=== PATIENT | female | born 1950 | race Caucasian/White ===

== ENCOUNTER 2016-07-12 15:52 | Outpatient (CLI) | payer OTHER | END 2016-07-12 15:53 | disposition home or self-care (01) | DX: R05 Cough (principal); R91.8 Other nonspecific abnormal finding of lung field ==

== ENCOUNTER 2021-10-02 08:04 | Outpatient (CLI) | payer MEDICARE, OTHER ==
--- NOTE | 2021-10-02 11:54 | Ultrasound Report ---
PROCEDURE: Head or Neck Soft Tissue INDICATIONS: THYROID NODULE TECHNIQUE: Real-time scanning was performed of the thyroid gland, with image documentation. COMPARISON: None FINDINGS: Right: Thyroid lobe measures 3.5 x 1.4 x 1.3 cm, and is homogeneous in echotexture. Left: Thyroid lobe measures 4.8 x 1.7 cm, and is homogenous in echotexture. Isthmus: 3 mm thick. Nodule number: One Location: Right inferior Size: 2.9 x 2.0 x 1.9 cm. Composition: Solid Echogenicity: Isoechoic Shape: wider than tall. Margins: Lobulated Echogenic foci: Macrocalcification Total points: 6 ACR TI-RADS category: Moderately suspicious IMPRESSION: 2.9 x 2.0 x 1.9 cm inferior right thyroid nodule. Recommend ultrasound-guided fine needl e aspiration based on imaging characteristics and criteria outlined below. ACR TI-RADS definitions and recommendations: TI-RADS 1 (benign): 0 points. FNA not needed. TI-RADS 2 (not suspicious): 2 points. FNA not needed. TI-RADS 3 (mildly suspicious): 3 points. "FNA if 2.5 cm or larger, follow up if 1.5 cm or larger (at 1, 3, and 5 years). TI-RADS 4 (moderately suspicious): 4-6 points. "FNA if 1.5 cm or larger, follow up if 1 cm or larger (at 1, 2, 3, and 5 years). TI-RADS 5 (highly suspicious): 7 points or more. "FNA if 1 cm or larger, follow up if 0.5 cm or larger (every year for 5 years). Reviewed by: Rosaura Carlos MD, PhD on 10/02/2021 11:53 AM PDT Approved by: Rosaura Carlos MD, PhD on 10/02/2021 11:53 AM PDT Station ID: [id number]
--- NOTE | 2021-10-02 17:23 | DEXA Report ---
PROCEDURE: Dexa Spine and/or Hip INDICATIONS: POSTMENOPAUSAL TECHNIQUE: Dual energy x-ray absorptiometry (DXA) was performed on a [employer] System. Regions measur ed are the AP Spine, femoral neck, and if needed forearm. COMPARISON: None. FINDINGS: Lumbar Spine: Bone Mineral Density 1.476 g/cm/cm,T score 2.5, normal bone density Left Hip: Bone Mineral Density 0.967 g/cm/cm,T score -0.3, normal bone mineral density Left Femoral Neck: Bone Mineral Density 0.870 g/cm/cm, T score -1.2, osteopenia (T score greater or equal to -1.0: NORMAL) (T score from -1.1 to -2.4: OSTEOPENIA) (T score less than or equal to -2.5 to: OSTEOPOROSIS) Impression: Mild osteopenia. Patient is at increased risk for fracture. Patients with diagnosis of osteoporosis or osteopenia should have regular bone mineral density assess ment. For those eligible for Medicare, routine testing is allowed once every 2 years. Testing frequ ency can be increased for patients who have rapidly progressing disease or for those who are receivin g medical therapy to restore bone mass. Reviewed by: Ángel Franco MD on 10/02/2021 5:21 PM PDT Approved by: Ángel Franco MD on 10/02/2021 5:21 PM PDT Station ID: [id number]
== END 2021-10-02 08:05 | disposition home or self-care (01) ==
LOC: DI 08:04
PROVIDERS: ATTEND Physician Assistant
DX: Z78.0 Asymptomatic menopausal state (principal); M85.88 Other specified disorders of bone density and structure, other site; E04.1 Nontoxic single thyroid nodule

== ENCOUNTER 2021-11-05 14:12 | Outpatient (CLI) | payer MEDICARE, OTHER ==
--- NOTE | 2021-11-07 13:13 | Mammography Report ---
BILATERAL DIGITAL SCREENING MAMMOGRAM 3D/2D WITH EXAGGERATED CC: 11/05/2021 CLINICAL: Routine screening. Comparison is made to exams dated: 04/18/2016 mammogram and 02/18/2008 mammogram - [facility]. The tissue of both breasts is predominantly fatty. There is a possible asymmetry in the left breast anterior depth central to the nipple seen on the med iolateral oblique view only. No other significant masses, calcifications, or other findings are seen in either breast. IMPRESSION: INCOMPLETE: NEEDS ADDITIONAL IMAGING EVALUATION The possible asymmetry in the left breast is indeterminate. Additional views with possible ultrasoun d are recommended. This exam was interpreted at Station ID: [id number]. NOTE: For mammograms, a report in lay terms will be sent to the patient. Approximately 15% of breast malignancies will not be visualized mammographically. In the management of a palpable breast mass, a negative mammogram must not discourage biopsy of a clinically suspicious lesion. Electronically Signed By: Francisco Arguelles M.D., jr/evy:11/07/2021 09:03:55 ACR BI-RADS Category 0: Incomplete 3340F PARENCHYMAL PATTERN: (F) - The breast(s) demonstrate(s) diffuse fatty replacement. BI-RADS CATEGORY: (0) - 0 Mammo and [place] [id number] Immediate follow-up LATERALITY: (B)
== END 2021-11-05 14:13 | disposition home or self-care (01) ==
LOC: DI.S 14:12
PROVIDERS: ATTEND Physician Assistant
DX: Z12.31 Encounter for screening mammogram for malignant neoplasm of breast (principal); R92.8 Other abnormal and inconclusive findings on diagnostic imaging of breast

== ENCOUNTER 2022-09-18 06:40 | Outpatient (CLI) | payer MEDICARE, OTHER ==
--- NOTE | 2022-09-18 08:17 | Ultrasound Report ---
PROCEDURE: Abdomen Complete INDICATIONS: ABD PAIN. Nausea, constipation. TECHNIQUE: Real-time scanning was performed of the abdominal and retroperitoneal organs, with image documentatio n. COMPARISON: None. FINDINGS: Liver: Increased liver echogenicity, commonly mild hepatic steatosis. Gallbladder: Unremarkable. Biliary ducts: Intrahepatic bile ducts are non-dilated. Extrahepatic bile duct caliber measures 3.6 mm. Normal is 6-7 mm or less in diameter, or 10 mm or less post-cholecystectomy. Pancreas: Visualized portions of the pancreas are sonographically normal. Spleen: Spleen is normal in size and homogeneous in echotexture. Kidneys: Kidneys are normal in size and echotexture. Right kidney measures 10.9 cm long; left kidne y measures 10.8 cm long. No hydronephrosis or nephrolithiasis. No solid masses. No complex renal cy stic lesions which require follow-up. Aorta: Visualized aorta is normal in caliber at less than 3 cm. Iliacs: Proximal common iliac arteries are normal in caliber at less than 2.5 cm. IVC: Intrahepatic inferior vena cava is patent. Miscellaneous: No free abdominal fluid. IMPRESSION: Echogenic liver, commonly caused by mild hepatic steatosis. No additional findings to explain the patient's abdominal pain. Reviewed by: Rafael Blank on 09/18/2022 8:16 AM PDT Approved by: Rafael Blank on 09/18/2022 8:16 AM PDT Station ID: [id number]
== END 2022-09-18 06:41 | disposition home or self-care (01) ==
LOC: DI 06:40
PROVIDERS: ATTEND Physician Assistant
DX: R10.10 Upper abdominal pain, unspecified (principal)

== ENCOUNTER 2023-09-25 17:48 | Emergency (ER) | payer MEDICARE, OTHER ==
--- NOTE | 2023-09-25 17:56 | ED Physician Documentation ---
PD HPI SYNCOPE - Stated complaint Stated Complaint: SYNCOPAL EPISODE - History obtained from History obtained from: Patient - Additional information Additional information: 73-year-old woman syncopized after giving blood today. She is brought in by ambulance. She had completed giving blood at [facility] and got up to go get a snack at the table when she started to feel dizzy and sat down and put her head down but then subsequently syncopized for 70 seconds. There was no injury. She denies chest pain with it. On the way here she was nauseous and administered 8 mg of IV Zofran with some improvement. She denies headache, chest pain, trouble breathing, pedal edema, calf pain, recent travel. She had a similar episode a couple of years ago after giving blood. PD PAST MEDICAL HISTORY - Past Medical History Cardiovascular: None Respiratory: None Endocrine/Autoimmune: None GI: None : None HEENT: None Psych: None Musculoskeletal: None Derm: None - Past Surgical History Past Surgical History: Yes /[employer]: section, Hysterectomy - Present Medications Home Medications: Ambulatory Orders Medication Instructions Recorded Confirmed No Known Home Medications 06/05/13 06/05/13 - Allergies Allergies/Adverse Reactions: Allergies Allergy/AdvReac Type Severity Reaction Status Date / Time No Known Drug Allergies Allergy Verified 09/25/23 17:53 - Social History Does the pt smoke?: No Smoking Status: Former smoker Does the pt drink ETOH?: Yes Does the pt have substance abuse?: No - Immunizations Immunizations are current?: Yes - POLST Patient has POLST: No PD ED PE NORMAL - Vitals Vital signs reviewed: Yes - General General: Alert and oriented X 3, No acute distress - HEENT HEENT: PERRL, EOMI - Neck Neck: Supple, no meningeal sign, No bony TTP - Cardiac Cardiac: RRR, No murmur - Respiratory Respiratory: No respiratory distress, Clear bilaterally - Abdomen Abdomen: Non tender - Extremities Extremities: No edema, No calf tenderness / cord - Neuro Neuro: Alert and oriented X 3, No motor deficit, No sensory deficit, Normal speech Eye Opening: Spontaneous Motor: Obeys Commands Verbal: Oriented GCS Score: 15 Results - Vitals Vitals: Vital Signs - 24 hr 09/25/23 09/25/23 17:53 19:25 Temperature 36.5 C Heart Rate 77 Heart Rate [ 80 Sitting] Heart Rate [ 83 Standing] Heart Rate [ 84 Supine] Respiratory 18 Rate Blood Pressure 179/100 H Blood Pressure 124/68 [Sitting] Blood Pressure 101/70 [Standing] Blood Pressure 133/64 H [Supine] O2 Saturation 100 Oxygen O2 Source Room air - EKG (time done) 1811 EKG releavant findings:: EKG personally interpreted by author of this note. Relevant findings are: Rate: Rate (enter#) (62) Rhythm: NSR Placida: Normal Intervals: Normal NE QRS: Low voltage Ischemia: Normal ST segments Computer interpretation: Agree with computer - Labs Labs: Laboratory Tests 09/25/23 09/25/23 18:09 18:09 WBC 12.5 H RBC 5.32 Hgb 12.5 Hct 41.6 MCV 78.2 L MCH 23.5 L MCHC 30.0 L RDW 16.9 H Plt Count 360 MPV 9.3 Neut # (Auto) 9.3 H Lymph # (Auto) 2.1 Lake # (Auto) 0.9 Eos # (Auto) 0.1 Baso # (Auto) 0.1 Absolute Nucleated RBC 0.00 Nucleated RBC % 0.0 Sodium 140 Potassium 3.4 L Chloride 106 Carbon Dioxide 25 Anion Gap 9.0 BUN 10 Creatinine 0.6 Estimated GFR (MDRD) 99 Glucose 131 H Calcium 9.2 Total Bilirubin 0.7 AST 19 ALT 16 Alkaline Phosphatase 106 Troponin I High Sens 5.8 Total Protein 7.3 Albumin 4.1 Globulin 3.2 Albumin/Globulin Ratio 1.3 Lipase 32 PD Medical Decision Making - ED course ED course: Workup in the emergency department demonstrated low normal hemoglobin and mild elevation in white blood cell count, nonspecific. Chemistries were unremar kable. After 1 L of IV fluids orthostatics were done and she was feeling much better, but she did have just a 20 point drop in blood pressure going from supine to standing. Oral fluids and light activity tonight were advised. Also significant consideration prior to any thought of giving blood again. I actually discouraged it. Departure - Departure Disposition: 01 Home, Self Care Clinical Impression: Syncope Qualifiers: Syncope type: vasovagal syncope Qualified Code(s): R55 - Syncope and collapse Condition: Good Record reviewed to determine appropriate education?: Yes Instructions: ED Syncope Vasovagal Comments: You were seen today after a fainting episode after giving blood. Diagnostic testing was unremarkable. I would take it easy tonight and drink plenty of fluids. No quick position changes and nothing exertional tonight. I would probably discourage you from giving blood again or if you do decide to do so careful consideration with consultation with your primary care physician. Return for new or worsening symptoms. Do follow-up with your doctor in about a week for recheck.
[2023-09-25 18:11] LABS: BASOPHILS # (AUTO) 0.1 10^3/uL (0.0-0.1); EOSINOPHILS # (AUTO) 0.1 10^3/uL (0.0-0.7); EOSINOPHILS % (AUTO) 0.5 %; HCT - HEMATOCRIT 41.6 % (37.0-47.0); HGB - HEMOGLOBIN 12.5 g/dL (12.0-16.0); LYMPHOCYTES # (AUTO) 2.1 10^3/uL (1.5-3.5); LYMPHOCYTES % (AUTO) 17.1 %; MEAN CORPUSCULAR HEMOGLOBIN 23.5 pg (27.0-31.0); MEAN CORPUSCULAR VOLUME 78.2 fL (81.0-99.0); MEAN PLATELET VOLUME 9.3 fL (7.9-10.8); MONOCYTES # (AUTO) 0.9 10^3/uL (0.0-1.0); NEUTROPHILS # (AUTO) 9.3 10^3/uL (1.5-6.6); NEUTROPHILS % (AUTO) 74.2 %; PLT - PLATELET COUNT 360 10^3/uL (130-450); RED BLOOD COUNT 5.32 10^6/uL (4.20-5.40); RED CELL DISTRIBUTION WIDTH 16.9 % (12.0-15.0); WHITE BLOOD COUNT 12.5 x10^3/uL (4.8-10.8)
[2023-09-25 18:32] LABS: ALBUMIN 4.1 g/dL (3.2-5.5); ALBUMIN/GLOBULIN RATIO 1.3 (1.0-2.2); BILIRUBIN,TOTAL 0.7 mg/dL (0.2-1.0); CALCIUM 9.2 mg/dL (8.5-10.3); CREATININE 0.6 mg/dL (0.6-1.3); POTASSIUM 3.4 mmol/L (3.5-4.5); TOTAL PROTEIN 7.3 g/dL (6.4-8.9); TROPONIN I HIGH SENSITIVITY 5.8 ng/L (2.3-14.8)
[2023-09-25 19:33] VITALS: BP 133/64; O2SAT 96
== END 2023-09-25 19:40 | disposition home or self-care (01) ==
LOC: EDUNIT# → ED 17:48
DX: R55 Syncope and collapse (principal)
CPT/HCPCS: 36415; 80053; 83690; 84484; 85025; 93005; 99283; 99284

== ENCOUNTER 2024-01-16 06:27 | Day surgery (SDC) | payer MEDICARE, OTHER ==
[2024-01-16] MEDS: LACTATED RINGERS 1,000 ML IV ONE ×2 (06:40→08:13)
[2024-01-16] MEDS ORDERED: PROPOFOL 500 MG/50 ML 500 MG/50 ML VIAL ONE (07:03)
[2024-01-16] MEDS ORDERED: LIDOCAINE-MPF 2% 5 ML VIAL ONE (07:03)
--- NOTE | 2024-01-16 07:14 | ANESTHESIA ---
Pre-Anesthesia VS, & Labs - Diagnosis screening - Procedure colonoscopy Vital Signs: Temp Pulse Resp BP Pulse Ox O2 Flow Rate 36.2 C L 70 15 173/79 H 97 01/16/24 06:46 01/16/24 06:46 01/16/24 06:46 01/16/24 06:46 01/16/24 06:46 Height: 5 ft 2 in Weight (kg): 75.4 kg Body Mass Index: 30.4 BMI Classification: Obese - NPO >8 hours - Is Patient ?: No Home Medications and Allergies Atorvastatin [Lipitor] 20 mg PO QPM 09/25/23 Allergies/Adverse Reactions: Allergies Allergy/AdvReac Type Severity Reaction Status Date / Time codeine Allergy Nausea Verified 01/16/24 06:58 Anes History & Medical History - Anesthetic History Anesthesia Complications: reports: No previous complications Family history of Anesthesia Complications: Denies Family history of Malignant Hyperthermia: Denies - Medical History Cardiovascular: reports: High cholesterol Pulmonary: reports: Pneumonia Gastrointestinal: reports: Chronic constipation Urinary: reports: None Musculoskeletal: reports: None Endocrine/Autoimmune: reports: None Blood Disorders: reports: None Skin: reports: None Smoking Status: Former smoker - Surgical History Gynecologic: reports: section, Hysterectomy Exam General: Alert, Oriented x3, Cooperative Dental: WNL Mouth Openin Fingerbreadth Neck Mobility: Normal Mallampati classification: II Thyromental Distance: 4-6 cm Respiratory: Lungs clear Cardiovascular: Regular rate Plan Anesthesia Type: General, Total IV Consent for Procedure(s) Verified and Reviewed: Yes Code Status: Attempt Resuscitation ASA classification: 1-Healthy patient Is this case an emergency?: No
--- NOTE | 2024-01-16 07:24 | HISTORY & PHYSICAL EXAMINATION ---
Chief Complaint - Chief Complaint Chief Complaint: here for colonoscopy History of Present Illness - History Obtained From Records Reviewed: yes History obtained from: pt Exam Limitations: none - History of Present Illness HPI Comment/Other: here for screening colonoscopy. no gi symptoms or family hx colon ca. past cologuard negative. History - Past Medical History Cardiovascular: reports: High cholesterol Respiratory: reports: Pneumonia Endocrine/Autoimmune: reports: None GI: reports: Chronic constipation : reports: None HEENT: reports: Dental implants Psych: reports: Depression Musculoskeletal: reports: None Derm: reports: None MRSA Hx?: No - Past Surgical History /[employer]: reports: section, Hysterectomy - POLST Patient has POLST: No Meds/Allgy - Home Medications Home Medications: Ambulatory Orders Medication Instructions Recorded Confirmed Atorvastatin [Lipitor] 20 mg PO QPM 09/25/23 01/15/24 - Allergies Allergies/Adverse Reactions: Allergies Allergy/AdvReac Type Severity Reaction Status Date / Time codeine Allergy Nausea Verified 01/16/24 06:58 Review of Systems - Other Findings Other Findings: 10 pt ros as above otherwise unremarkable Exam - Vital Signs Vital Signs: Vital Signs x48h Temp Pulse Resp BP Pulse Ox 01/16/24 06:46 36.2 C L 70 15 173/79 H 97 - Physical Exam General Appearance: positive: No acute distress, Alert Eyes Bilateral: positive: Normal inspection, EOMI ENT: positive: No signs of dehydration Neck: positive: Thyroid nml Respiratory: positive: No respiratory distress Cardiovascular: positive: Regular rate & rhythm Abdomen: positive: No distention Neurologic/Psychiatric: positive: Oriented x3 Conclusion/Plan - Problem List (1) Colon cancer screening Conclusion/Plan: plan colonoscopy. parq held and consent obtained
[2024-01-16 08:33] VITALS: BP 120/77; O2SAT 98
--- NOTE | 2024-01-16 14:16 | ANESTHESIA POST OP EVALUATION ---
Anesthesia Post Eval - Post Anesthesia Eval Vitals: Last Vital Signs Temp 36.1 C L 01/16/24 08:13 Pulse 66 01/16/24 08:29 Resp 20 01/16/24 08:29 BP 120/77 01/16/24 08:29 Pulse Ox 98 01/16/24 08:29 O2 Flow Rate CV Function Including HR & BP: Stable Pain Control: Satisfactory Nausea & Vomiting: Negative Mental Status: Baseline Respiratory Status: Airway Patent Hydration Status: Satisfactory Anesthesia Complications: None
== END 2024-01-16 06:28 | disposition home or self-care (01) ==
LOC: SDS 06:27
PROVIDERS: ATTEND Surgery
PROC: 0DBP8ZZ Excision of Rectum, Via Natural or Artificial Opening Endoscopic (ICD-10-PCS; principal; 2024-01-16 07:30)
DX: Z12.11 Encounter for screening for malignant neoplasm of colon (principal); D12.8 Benign neoplasm of rectum; E66.9 Obesity, unspecified; Z68.30 Body mass index [BMI] 30.0-30.9, adult; Z87.891 Personal history of nicotine dependence
CPT/HCPCS: 45380; J7120